=== PATIENT | female | born 1940 | race Caucasian/White ===

== ENCOUNTER → 2017-03-10 | Outpatient (CLI) | payer MEDICARE ==
[~2017-03-10] MED LIST: ACE3 PO; AMLO-104 PO; ASPI-715 PO; CALC-649 PO; CAR350 PO; LISI-362 PO; LOR5/325 PO; METH4TAB57 PO; MULT-1 PO; OXYC-378 PO; OXYC-489 PO; POTA20TA85 PO; POTASSIUM PO; TRIA-20 PO
[2017-03-10 14:54] LABS: INR 2.97
== END ==
LOC: LAB 14:00
PROVIDERS: ATTEND Internal Medicine Cardiovascular Disease
DX: Z51.81 Encounter for therapeutic drug level monitoring (principal); Z95.2 Presence of prosthetic heart valve; I48.0 Paroxysmal atrial fibrillation; Z79.01 Long term (current) use of anticoagulants
CPT/HCPCS: 36415; 85610

== ENCOUNTER → 2017-04-07 | Outpatient (CLI) | payer MEDICARE ==
[2017-04-07 14:58] LABS: INR 2.79
== END ==
LOC: LAB 13:37
PROVIDERS: ATTEND Internal Medicine Cardiovascular Disease
DX: I48.0 Paroxysmal atrial fibrillation (principal); Z95.2 Presence of prosthetic heart valve; Z79.01 Long term (current) use of anticoagulants
CPT/HCPCS: 36415; 85610

== ENCOUNTER 2017-04-16 15:48 | Inpatient (IN) | payer MEDICARE ==
[~2017-04-16] VITALS: Ht 157.5 cm; Wt 83.5 kg
[2017-04-16] MEDS ORDERED: ALBUTEROL/IPRATROPIUM 3 ML NEB NEB ONE (16:10)
[2017-04-16 16:18] LABS: PLATELET COUNT, AUTOMATED 209 K/uL (150-450)
[2017-04-16] MEDS ORDERED: CLOP75TA PO (16:23)
[2017-04-16] MEDS ORDERED: SIMV-49 PO (16:23)
[2017-04-16] MEDS ORDERED: TIO18R INH (16:23)
[2017-04-16] MEDS ORDERED: WARF5TAB23 PO (16:23)
[2017-04-16] MEDS ORDERED: LISI-362 PO (16:23)
[2017-04-16] MEDS ORDERED: OMEP-137 PO (16:23)
--- NOTE | 2017-04-16 16:29 | EKG ---
[place] [facility] [place] NAME: MIGUEL GONZALEZ : [id number] MR: [id number] V: [id number] EXAM DATE: ORDERING PHYSICIAN: ELI GARCIA TECHNOLOGIST: NINO Klein Reason : SOB Blood Pressure : / mmHG Vent. Rate : 078 BPM Atrial Rate : 078 BPM P-R Int : 190 ms QRS Dur : 138 ms QT Int : 418 ms P-R-T Axes : 068 -88 074 degrees QTc Int : 476 ms Ventricular pacemaker Abnormal ECG Confirmed by ONEYDA BETH ([id number]) on 04/17/2017 6:17:29 AM Referred By: RADHA Confirmed By:ONEYDA BETH
--- NOTE | 2017-04-16 16:57 | RADIOLOGY IMAGING REPORT ---
FACILITY: [facility] - [place] PATIENT NAME: Livier Jarrett : 1940 MR: [id number] V: [id number] EXAM DATE: ORDERING PHYSICIAN: ELI GARCIA TECHNOLOGIST: Location: [facility] Patient: Livier Jarrett : 1940 Visit/Account:[id number] Date of Sevice: 04/16/2017 EXAMINATION: Chest radiographs 2 views HISTORY: Shortness of breath. COMPARISON: None. FINDINGS: PA and lateral views of the chest are submitted. Lines/tubes: Left-sided dual-lead pacemaker with intact and well-positioned leads. Spinal cord stimu lator in the dorsal thoracic region partly visualized. Lungs/pleura: No focal consolidation or pleural effusion. Heart: Negative. Mediastinum: Atherosclerotic calcifications of the aorta. Central pulmonary arteries are mildly enla rged. Stent graft in the proximal ascending aorta. Bony structures/body wall: Fusion hardware in the lower cervical spine. IMPRESSION: No radiographic evidence of acute cardiopulmonary disease. Report Dictated By: Danielle Conteh MD at 04/16/2017 4:52 PM Report E-Signed By: Danielle Conteh MD at 04/16/2017 4:54 PM WSN:[id number]
[2017-04-16] MEDS ORDERED: NS(*) 0.9% 500 ML BAG 500 ML IV ONE (17:15)
[2017-04-16] MEDS ORDERED: IOPAMIDOL 76% 75 ML INFUS BTL 75 ML ONE (17:19)
[2017-04-16] MEDS ORDERED: NS 0.9% ONE (17:19)
[2017-04-16 17:26] LABS: INR 2.06
[2017-04-16] MEDS ORDERED: IOPAMIDOL 76% 50 ML INFUS BTL 50 ML ONE (17:41)
--- NOTE | 2017-04-16 17:54 | ER Report ---
History and Physical Time Seen By MD: 13:50 Hx. of Stated Complaint: PATIENT WAS SEEN AT URGENT CARE. DIAGNOSED WITH PNEUMONIA AND SENT OVER HERE HPI/ROS CHIEF COMPLAINT: Hypoxia HISTORY OF PRESENT ILLNESS: 68 HO female comes emergency Department today sent here by an urgent care center for diagnosis of reportedly bilateral pneumonia and hypoxia she was hypoxic on arrival patient states she's been short of breath for the last couple of days history of valve replacement and pacemaker placement patient has no orthopnea no PND patient denies any chest pain at this time patient states that she's had some exertional dyspnea however patient has no additional complaints noted REVIEW OF SYSTEMS: Respiratory: Has dyspnea without cough Cardiovascular: No chest pain, no palpitations. Gastrointestinal: No vomiting, no abdominal pain. Musculoskeletal: No back pain. Remainder of the 14 system rev: Yes Allergies: Coded Allergies: adhesive tape (Verified Allergy, Mild, 10/10/12) duloxetine (Verified Allergy, Mild, 10/10/12) escitalopram (Verified Allergy, Mild, 10/10/12) gabapentin (Verified Allergy, Mild, 10/10/12) pregabalin (Verified Allergy, Mild, 10/10/12) Home Meds Active Scripts Prednisone 10 Mg Tab (PREDNISONE 10 MG TAB) 10 Mg Tablet, 10-40 MG PO QDAY, #21 TAB 4 pills a day for 3 days, then 2 a day for 3 days, then 1 a day for 3 days Prov:ARY CANNON MD 04/20/17 Levofloxacin 750 Mg Tab (LEVOFLOXACIN 750 MG TAB) 750 Mg Tablet, 750 MG PO QDAY@ 1430, #2 Prov:ARY CANNON MD 04/20/17 Reported Medications Warfarin Sodium (WARFARIN SODIUM) 5 Mg Tablet, 5 MG PO QDAY, TAB 1 tab on MON, WED, FRI 1/2 Tab on TUES, THURS, SAT, SUN 04/16/17 Clopidogrel Bisulfate (CLOPIDOGREL) 75 Mg Tablet, 1 TAB PO QDAY, TAB 04/16/17 Tiotropium Glover (SPIRIVA) 18 Mcg/Cap Inh, 18 MCG INH QDAY, INH 04/16/17 Simvastatin (SIMVASTATIN) 20 Mg Tablet, 20 MG PO HS, TAB 04/16/17 Omeprazole (OMEPRAZOLE) 20 Mg Tablet.dr, 20 MG PO QDAY, TAB 04/16/17 Lisinopril (LISINOPRIL) 10 Mg Tablet, 10 MG PO QDAY, TAB 04/16/17 Multivitamins W-Minerals/Lut (Centrum Silver Tablet) 1 Tab Tablet, 1 TAB PO DAILY, 0 Refills 02/02/09 Amlodipine Besylate (Norvasc) 10 Mg Tablet, 10 MG PO DAILY, 0 Refills 02/02/09 Discontinued Reported Medications Hydrocodone Bit/Acetaminophen (HYDROCODON-ACETAMINOPHEN 5-325) 1 Each Tablet, 1 EACH PO Q4-6H 10/10/12 Calcium Carbonate/Vitamin D3 (Calcium + D Tablet) 1 Udtab Tablet, 1 UDTAB PO DAILY, 0 Refills 02/02/09 Aspirin (Aspirin) 81 Mg Tablet.dr, 81 MG PO DAILY, 0 Refills 02/02/09 Triamterene/Hydrochlorothiazid (Triamterene/Hctz 37.5/25 Tb) 1 Each Tablet, 1 EACH PO DAILY, 0 Refills 02/02/09 Carisoprodol (Soma) 350 Mg Tab, 350 MG PO BID, 0 Refills 02/02/09 Reviewed Nurses Notes: Yes Old Medical Records Reviewed: Yes Hx Smoking: Yes (10 A DAY) Constitutional Physical Exam General Appearance: The patient is alert, has no immediate need for airway protection and no current signs of toxicity. [ ] Eyes: Pupils equal and round no injection. Respiratory: Decreased breath sounds right greater than left some mild coarse crackles at the bases otherwise unremarkable Cardiac: regular rate and rhythm [ ] Gastrointestinal: Abdomen is soft and non tender, no masses, bowel sounds normal. Musculoskeletal: Neck: Neck is supple and non tender. Extremities have full range of motion and are non tender. Skin: No rashes or lesions. [ ] DIFFERENTIAL DIAGNOSIS: After history and physical exam differential diagnosis was considered for CHF COPD acute myocardial infarction pulmonary emboli or dissection infectious pneumonia bronchitis Medical Decision Making Data Points Result Diagram: 04/20/17 0505 04/20/17 0505 Laboratory Hematology Test 04/16/17 16:06 04/16/17 16:22 Activated Partial Thromboplast Time 37 seconds (23-35) D-Dimer Quantitative (PE/DVT) < 0.27 ug/ml (0-0.50) B-Type Natriuretic Peptide 278 pg/ml (0-100) Blood Gas Puncture Site Left radial Blood Gas Patient Temperature 97.8 DEGREES Arterial Blood pH 7.33 (7.35-7.45) Arterial Blood Partial Pressure CO2 39 mmHg (32-37) Arterial Blood Partial Pressure O2 67 mmHg (60-80) Arterial Blood HCO3 20 mmol/L (20-26) Arterial Blood Oxygen Saturation 92 % (92-100) Arterial Blood Base Excess -6.0 mmol/L Josh Test Acceptable Oxygen Liters/Minute 8 Chemistry Test 04/16/17 16:06 04/16/17 16:22 Activated Partial Thromboplast Time 37 seconds (23-35) D-Dimer Quantitative (PE/DVT) < 0.27 ug/ml (0-0.50) B-Type Natriuretic Peptide 278 pg/ml (0-100) Blood Gas Puncture Site Left radial Blood Gas Patient Temperature 97.8 DEGREES Arterial Blood pH 7.33 (7.35-7.45) Arterial Blood Partial Pressure CO2 39 mmHg (32-37) Arterial Blood Partial Pressure O2 67 mmHg (60-80) Arterial Blood HCO3 20 mmol/L (20-26) Arterial Blood Oxygen Saturation 92 % (92-100) Arterial Blood Base Excess -6.0 mmol/L Josh Test Acceptable Oxygen Liters/Minute 8 Coagulation Test 04/16/17 16:06 Activated Partial Thromboplast Time 37 seconds D-Dimer Quantitative (PE/DVT) < 0.27 ug/ml ED Course/Re-evaluation ED Course ED clinical course medical decision making some major female x-ray does not show bilateral pneumonias in fact shows no cardiopulmonary acute pathology of any kind patient is elevated to 60 most likely heartstring could be progressive from the valve replacement Coumadin is subtherapeutic we'll get a CT scan this is pending we'll be signing off to Sourav Contreras for follow-up patient on supplemental oxygen 7 L now passed 90% resting comfortably physical exam otherwise unremarkable aside from an abnormal respiratory exam patient will not be day recent confirmatory CT scan has been performed overshoot anticoagulated she is subtherapeutic on her INR 2.05 patient be admitted to hospitalist service for hypoxia Decision to Disposition Date: Apr 23, 2017 Decision to Disposition Time: 10:09 Depart Departure Latest Vital Signs Impression: Primary Impression: Hypoxia Condition: Improved Disposition: Admitted from ER Referrals: NEVAEH MITTAL (PCP) New Scripts Prednisone 10 Mg Tab (PREDNISONE 10 MG TAB) 10 Mg Tablet 10-40 MG PO QDAY, #21 TAB 4 pills a day for 3 days, then 2 a day for 3 days, then 1 a day for 3 days Prov: ARY CANNON MD 04/20/17 Levofloxacin 750 Mg Tab (LEVOFLOXACIN 750 MG TAB) 750 Mg Tablet 750 MG PO QDAY@1430, #2 Prov: ARY CANNON MD 04/20/17 ELI GARCIA MD Apr 16, 2017 17:54
--- NOTE | 2017-04-16 18:11 | RADIOLOGY IMAGING REPORT ---
[place] [facility] [place] NAME: Livier Jarrett : 1940 MR: [id number] V: [id number] EXAM DATE: ORDERING PHYSICIAN: ELI GARCIA TECHNOLOGIST: Location: [facility] [place] Patient: Livier Jarrett : 1940 Visit/Account:[id number] Date of Sevice: 04/16/2017 CT angiogram chest with contrast Indication: Cough and hypoxia. Comparison: None available. Technique: Axial CT images are obtained through the chest after administration of 75 mL Isovue 370 IV contrast. Reformatted coronal and sagittal images were reviewed as well as coronal MIP images. One of the following dose optimization techniques was utilized in the performance of this exam: auto mated exposure control; adjustment of the mA and/or kV according to the patient's size; or use of an iterative reconstruction technique. Specific details can be referenced in the facility's radiology C T exam operational policy. FINDINGS: No evidence of filling defect within the pulmonary vasculature to suggest pulmonary embolus. The heart is normal size without pericardial effusion. Cardiac pacing wires are in place. The proxima l aorta does show a stent in place without sequelae. There is no indication of aneurysm or dissection to the aorta. The mediastinum and hilar regions show a few small lymph nodes without any enlarged ly mph nodes or abnormal density. Lungs show no focal consolidation, pleural effusion or pneumothorax. The anterior left lower lobe jacome s show a pleural-based 4 x 4 mm nodule on image #89. The right upper lobe does show a 3 x 3 mm nodule on image #27. No other discrete nodules. No focal interstitial opacities. Airways are clear. The bony structures show no acute fractures or aggressive bony lesions. There is a neural stimulating wire in place the spinal canal region at the T9 level. Chest wall shows no enlarged axillary lymph n odes or masses. Limited views of the upper abdomen are unremarkable. IMPRESSION: 1. No evidence of pulmonary embolus. 2. No acute cardiothoracic abnormality 3. Bilateral subcentimeter nodule, largest 4 mm. These are too small characterize and could be postin flammatory. Suggest follow-up films for Fleischner guidelines described below. FLEISCHNER SOCIETY FOLLOW-UP GUIDELINES FOR NEWLY DETECTED INCIDENTAL NODULES IN PERSONS 35 YEARS OF AGE OR OLDER. *THESE RECOMMENDATIONS DO NOT APPLY TO LUNG CANCER SCREENING, PATIENTS WITH IMMUNOSUPPRESSION , OR PA TIENTS WITH KNOWN PRIMARY MALIGNANCY. MULTIPLE SOLID NODULES If largest nodule size is less than 6 mm: Low risk patient - no follow up needed High risk patient - Optional CT at 12 months. If largest nodule size is 6-8 mm: Low risk patient - follow up CT at 3-6 months, then consider CT at 18-24 months if no change. High risk patient - follow up CT at 3-6 months, then CT at 18-24 months if no change. If largest nodule size is greater than 8 mm: Low risk patient - follow up CT at 3-6 months, then consider CT at 18-24 months High risk patient - follow up CT at 3-6 months, then at 18-24 months LOW RISK PATIENT: Minimal or absent history of tobacco use and of other known risk factors. HIGH RISK PATIENT: Tobacco use, family history of lung cancer, upper pulmonary lobe location of nodul e, presence of emphysema, pulmonary fibrosis, older age. Jaime H, Yasmin DP, Livia VELASQUEZ, et al. Guidelines for Management of Incidental Pulmonary Nodules Dete cted on CT Images: From the Fleischner Society 2017. Radiology. Report Dictated By: Leonard Garza at 04/16/2017 5:58 PM Report E-Signed By: Leonard Garza at 04/16/2017 6:08 PM WSN:[id number]
--- NOTE | 2017-04-16 18:13 | EKG ---
FACILITY: [facility] - [place] PATIENT NAME: MIGUEL GONZALEZ : [id number] MR: [id number] V: [id number] EXAM DATE: ORDERING PHYSICIAN: ELI GARCIA TECHNOLOGIST: NINO Klein Reason : SOB Blood Pressure : / mmHG Vent. Rate : 075 BPM Atrial Rate : 075 BPM P-R Int : 186 ms QRS Dur : 136 ms QT Int : 428 ms P-R-T Axes : 070 -86 068 degrees QTc Int : 477 ms Ventricular pacemaker Abnormal ECG When compared with ECG of 16-APR-2017 16:01, No significant change was found Confirmed by ONEYDA BETH ([id number]) on 04/17/2017 6:18:02 AM Referred By: RADHA Confirmed By:ONEYDA BETH
[2017-04-16 18:27] VITALS: BP 136/69
[2017-04-16] MEDS ORDERED: ACETAMINOPHEN 325 MG TAB PO PRN (19:40)
[2017-04-16] MEDS ORDERED: FLUSH 10 ML SYR IVP PRN (19:40)
[2017-04-16] MEDS ORDERED: LEVALBUTEROL 0.63 MG/3 ML NEB NEB PRN (19:45)
--- NOTE | 2017-04-16 20:04 | History & Physical ---
History of Present Illness Chief Complaint Short of breath History of Present Illness 76yo female with PMHx significant for aortic valve replacement, pacemaker placement, HTN, polio as a child, multiple orthopedic surgeries. She reports onset of "feeling lousy" approximately 6-7 days ago. This was mainly cough ( minimally productive), dyspnea, mild myalgias, generalized malaise. She denied any obvious fevers or chills. No N/V/diarrhea, but did have decreased appetite. No urinary symptoms. No rashes. No CP/palpitations. She was evaluated in the urgent care and ER. She was found to be significantly hypoxic and requiring 6- 8L oxygen. CXR and CT pulmonary angiogram did not reveal a specific infiltrate or obvious pulmonary edema and negative for pulmonary embolus. She was recommended for admission. 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 Status: Chronic (7) History of lumbosacral spine surgery Status: Resolved (8) S/P cervical spinal fusion Status: Resolved Home Meds Reported Medications Warfarin Sodium (WARFARIN SODIUM) 5 Mg Tablet, 5 MG PO QDAY, TAB 1 tab on MON, WED, FRI 1/2 Tab on TU, TH, SAT, SUN 04/16/17 Clopidogrel Bisulfate (CLOPIDOGREL) 75 Mg Tablet, 1 TAB PO QDAY, TAB 04/16/17 Tiotropium Alexander (SPIRIVA) 18 Mcg/Cap Inh, 18 MCG INH QDAY, INH 04/16/17 Simvastatin (SIMVASTATIN) 20 Mg Tablet, 20 MG PO HS, TAB 04/16/17 Omeprazole (OMEPRAZOLE) 20 Mg Tablet.dr, 20 MG PO QDAY, TAB 04/16/17 Lisinopril (LISINOPRIL) 10 Mg Tablet, 10 MG PO QDAY, TAB 04/16/17 Multivitamins W-Minerals/Lut (Centrum Silver Tablet) 1 Tab Tablet, 1 TAB PO DAILY, 0 Refills 02/02/09 Amlodipine Besylate (Norvasc) 10 Mg Tablet, 10 MG PO DAILY, 0 Refills 02/02/09 Discontinued Reported Medications Hydrocodone Bit/Acetaminophen (HYDROCODON-ACETAMINOPHEN 5-325) 1 Each Tablet, 1 EACH PO Q4-6H 10/10/12 Calcium Carbonate/Vitamin D3 (Calcium + D Tablet) 1 Udtab Tablet, 1 UDTAB PO DAILY, 0 Refills 02/02/09 Aspirin (Aspirin) 81 Mg Tablet.dr, 81 MG PO DAILY, 0 Refills 02/02/09 Triamterene/Hydrochlorothiazid (Triamterene/Hctz 37.5/25 Tb) 1 Each Tablet, 1 EACH PO DAILY, 0 Refills 02/02/09 Carisoprodol (Soma) 350 Mg Tab, 350 MG PO BID, 0 Refills 02/02/09 Allergies: Coded Allergies: adhesive tape (Verified Allergy, Mild, 10/10/12) duloxetine (Verified Allergy, Mild, 10/10/12) escitalopram (Verified Allergy, Mild, 10/10/12) gabapentin (Verified Allergy, Mild, 10/10/12) pregabalin (Verified Allergy, Mild, 10/10/12) Patient History: CHF (congestive heart failure) MOTHER Coronary artery disease FATHER Other Social/Family Hx She is . Hx Smoking: Yes (10 A DAY) Smoking Status: Current: Every Day Smoker (quit a few days ago) Hx Alcohol Use: Yes (very rarely) Review of Systems Constitutional: No Fever, No Chills, No Night Sweats Neurological: Weakness, No Syncope, No Confusion Eyes: No Vision Change, No Loss of Vision ENT: No Hearing Loss, No Sore Throat Cardiovascular: No Chest Pain, No Palpitations, No Orthostatic Hypotension Respiratory: Shortness of Breath, Cough, Wheezing Gastrointestinal: No Nausea, No Vomiting, No Diarrhea, No Hematemesis, No Hematochezia, No Melena, No Abdominal Pain Genitourinary: No Dysuria, No Hematuria, No Urinary Incontinence Musculoskeletal: Pain (chronic back/lower extremity) Exam Vital Signs Vital Signs Date Time Temp Pulse Resp B/P (MAP) Pulse Ox O2 Delivery O2 Flow Rate FiO2 04/16/17 18:27 97.7 83 20 136/69 (91) 92 High-Flow Nasal Cannula 8.0 General Appearance: Alert, Awake Neuro: Other (weakness left lower extremity) Eyes: PERRLA ENT: Oropharynx Clear Neck: No Masses Cardiovascular: Regular Rate and Rhythm (with systolic murmur) Respiratory: Other (decreased breath sounds bilaterally with expiratory wheezes ) Chest: Other (some tenderness over pacemaker site left upper chest (chronic)/ no redness/swelling) GI: Abd Soft and Non-Tender : No CVA Tenderness Extremities: Warm, Perfused, Edema (trace lower extremity) Integumentary: Other (no rashes noted) Psych: Alert & Oriented X3 Medical Decision Making Data Points Result Diagram: 04/16/17 1606 04/16/17 1606 Item Value Date Time B-Type Natriuretic Peptide 278 pg/ml H 04/16/17 1606 Albumin 4.4 g/dl 04/16/17 1606 Total Protein 7.7 gm/dl 04/16/17 1606 Troponin I 0.017 ng/ml 04/16/17 1606 Alkaline Phosphatase 85 U/L 04/16/17 1606 Alanine Aminotransferase (ALT/SGPT) 32 U/L 04/16/17 1606 Aspartate Amino Transf (AST/SGOT) 29 U/L 04/16/17 1606 Total Bilirubin 0.4 mg/dl 04/16/17 1606 Calcium Level 9.2 mg/dl 04/16/17 1606 Prothrombin Time 23.7 seconds H 04/16/17 1606 Prothromb Time International Ratio 2.06 04/16/17 1606 Activated Partial Thromboplast Time 37 seconds H 04/16/17 1606 D-Dimer Quantitative (PE/DVT) < 0.27 ug/ml 04/16/17 1606 Oxygen Liters/Minute 8 04/16/17 1622 Josh Test Acceptable 04/16/17 1622 Arterial Blood Base Excess -6.0 mmol/L 04/16/17 1622 Arterial Blood Oxygen Saturation 92 % 04/16/17 1622 Arterial Blood HCO3 20 mmol/L 04/16/17 1622 Arterial Blood Partial Pressure O2 67 mmHg 04/16/17 1622 Arterial Blood Partial Pressure CO2 39 mmHg H 04/16/17 1622 Arterial Blood pH 7.33 L 04/16/17 1622 Blood Gas Patient Temperature 97.8 DEGREES 04/16/17 1622 Blood Gas Puncture Site Left radial 04/16/17 1622 EKG / Imaging Imaging PATIENT NAME: Livier Jarrett : 1940 MR: [id number] V: [id number] EXAM DATE: ORDERING PHYSICIAN: ELI GARCIA TECHNOLOGIST: Location: [facility] [place] Patient: Livier Jarrett : 1940 Visit/Account:[id number] Date of Sevice: 04/16/2017 EXAMINATION: Chest radiographs 2 views HISTORY: Shortness of breath. COMPARISON: None. FINDINGS: PA and lateral views of the chest are submitted. Lines/tubes: Left-sided dual-lead pacemaker with intact and well-positioned leads. Spinal cord stimulator in the dorsal thoracic region partly visualized. Lungs/pleura: No focal consolidation or pleural effusion. Heart: Negative. Mediastinum: Atherosclerotic calcifications of the aorta. Central pulmonary arteries are mildly enlarged. Stent graft in the proximal ascending aorta. Bony structures/body wall: Fusion hardware in the lower cervical spine. IMPRESSION: No radiographic evidence of acute cardiopulmonary disease. Report Dictated By: Danielle Conteh MD at 04/16/2017 4:52 PM Report E-Signed By: Danielle Conteh MD at 04/16/2017 4:54 PM WSN:[id number] PATIENT NAME: Livier Jarrett : 1940 MR: [id number] V: [id number] EXAM DATE: ORDERING PHYSICIAN: ELI GARCIA TECHNOLOGIST: Location: [facility] [place] Patient: Livier Jarrett : 1940 Visit/Account:[id number] Date of Sevice: 04/16/2017 CT angiogram chest with contrast Indication: Cough and hypoxia. Comparison: None available. Technique: Axial CT images are obtained through the chest after administration of 75 mL Isovue 370 IV contrast. Reformatted coronal and sagittal images were reviewed as well as coronal MIP images. One of the following dose optimization techniques was utilized in the performance of this exam: automated exposure control; adjustment of the mA and/ or kV according to the patient's size; or use of an iterative reconstruction technique. Specific details can be referenced in the facility's radiology CT exam operational policy. FINDINGS: No evidence of filling defect within the pulmonary vasculature to suggest pulmonary embolus. The heart is normal size without pericardial effusion. Cardiac pacing wires are in place. The proximal aorta does show a stent in place without sequelae. There is no indication of aneurysm or dissection to the aorta. The mediastinum and hilar regions show a few small lymph nodes without any enlarged lymph nodes or abnormal density. Lungs show no focal consolidation, pleural effusion or pneumothorax. The anterior left lower lobe does show a pleural-based 4 x 4 mm nodule on image # 89. The right upper lobe does show a 3 x 3 mm nodule on image #27. No other discrete nodules. No focal interstitial opacities. Airways are clear. The bony structures show no acute fractures or aggressive bony lesions. There is a neural stimulating wire in place the spinal canal region at the T9 level. Chest wall shows no enlarged axillary lymph nodes or masses. Limited views of the upper abdomen are unremarkable. IMPRESSION: 1. No evidence of pulmonary embolus. 2. No acute cardiothoracic abnormality 3. Bilateral subcentimeter nodule, largest 4 mm. These are too small characterize and could be postinflammatory. Suggest follow-up films for Fleischner guidelines described below. FLEISCHNER SOCIETY FOLLOW-UP GUIDELINES FOR NEWLY DETECTED INCIDENTAL NODULES IN PERSONS 35 YEARS OF AGE OR OLDER. *THESE RECOMMENDATIONS DO NOT APPLY TO LUNG CANCER SCREENING, PATIENTS WITH IMMUNOSUPPRESSION , OR PATIENTS WITH KNOWN PRIMARY MALIGNANCY. MULTIPLE SOLID NODULES If largest nodule size is less than 6 mm: Low risk patient - no follow up needed High risk patient - Optional CT at 12 months. If largest nodule size is 6-8 mm: Low risk patient - follow up CT at 3-6 months, then consider CT at 18-24 months if no change. High risk patient - follow up CT at 3-6 months, then CT at 18-24 months if no change. If largest nodule size is greater than 8 mm: Low risk patient - follow up CT at 3-6 months, then consider CT at 18-24 months High risk patient - follow up CT at 3-6 months, then at 18-24 months LOW RISK PATIENT: Minimal or absent history of tobacco use and of other known risk factors. HIGH RISK PATIENT: Tobacco use, family history of lung cancer, upper pulmonary lobe location of nodule, presence of emphysema, pulmonary fibrosis, older age. Jaime H, Yasmin DP, Livia VELASQUEZ, et al. Guidelines for Management of Incidental Pulmonary Nodules Detected on CT Images: From the Fleischner Society 2017. Radiology. Report Dictated By: Leonard Garza at 04/16/2017 5:58 PM Report E-Signed By: Leonard Garza at 04/16/2017 6:08 PM WSN:[id number] Assessment and Plan Problems: (1) Hypoxia Status: Acute Assessment & Plan: Based on history and exam it sounds as if she has significant bronchospasm possibly related to an acute viral infection. Will try to get her reactive airways under control. Will give supplemental oxygen and respiratory treatments as needed. Will also give a short burst of steroids. It is possible she has some mild pulmonary edema as well, especially given her history of valvular heart disease (s/p aortic valve replacement). Will check echocardiogram to assess LV function. Watch closely on telemetry. (2) HTN (hypertension) Status: Chronic Assessment & Plan: Watch BPs and resume her amlodipine and lisinopril as needed. (3) History of aortic valve replacement with porcine valve Status: Chronic Assessment & Plan: She has been on warfarin therapy since her surgery. Watch protime/INR. (4) History of permanent cardiac pacemaker placement Status: Chronic Assessment & Plan: Her pacemaker appears to be functioning normally. Watch on telemetry. Venous Thromboembolism Antithrombotics Is Pt On Any Antithrombotics?: Yes Exam Sepsis Risk: No Definite Risk ONEYDA BETH MD Apr 16, 2017 20:04
[2017-04-16] MEDS: methylPREDNIS SUCC 125 MG/2ML IVP SCH (21:00)
[2017-04-16] MEDS: SIMVASTATIN 20 MG TAB PO SCH (21:00)
[2017-04-16] MEDS: WARFARIN SOD 5 MG TAB PO SCH (21:17)
[2017-04-16 22:10] VITALS: BP 135/89
[2017-04-16 23:06] VITALS: BP 135/89
[2017-04-17 03:05] VITALS: BP 144/62
[2017-04-17] MEDS: methylPREDNIS SUCC 125 MG/2ML IVP SCH ×3 (05:24→20:31)
[2017-04-17] MEDS: LEVALBUTEROL 0.63 MG/3 ML NEB NEB SCH ×4 (06:00→16:59)
[2017-04-17 06:17] LABS: PLATELET COUNT, AUTOMATED 191 K/uL (150-450)
[2017-04-17 06:26] LABS: INR 2.15
[2017-04-17 07:42] VITALS: BP 151/77
[2017-04-17] MEDS: PANTOPRAZOLE SOD 40 MG TABEC PO SCH (08:32)
[2017-04-17] MEDS: CLOPIDOGREL BISULFATE 75MG TAB PO SCH (08:32)
[2017-04-17] MEDS: LISINOPRIL 10 MG TAB PO SCH (08:32)
[2017-04-17] MEDS: amLODIPine BESYL(*) 5 MG TAB PO SCH (08:32)
[2017-04-17 09:05] VITALS: Ht 157.5 cm; Wt 83.5 kg
[2017-04-17] MEDS: TIOTROPIUM BROM INH 18 MCG/CAP INH SCH (09:05)
[2017-04-17 10:56] VITALS: BP 161/74
--- NOTE | 2017-04-17 13:07 | Hospitalist Progress Note ---
Subjective Progress Notes Subjective She reports continued increased wob that is improved by getting nebs. The patient is still requiring 10 liters of O2. Physical Exam Vital Signs Date Time Temp Pulse Resp B/P (MAP) Pulse Ox O2 Delivery O2 Flow Rate FiO2 04/17/17 11:20 70 04/17/17 10:56 98.0 20 161/74 (103) 92 High-Flow Nasal Cannula 10.0 Intake and Output 04/18/17 07:00 Intake Total 440 ml Balance 440 ml Intake Oral 440 ml # Voids 1 General Appearance: Alert, Awake, Other (Mild increased work of breathing) Respiratory: Other (Poor air movement to the bases. Bilateral exp wheezing) Extremities: No Edema Result Diagram: 04/17/1752704/17/17527 Assessment and Plan Problems: (1) COPD exacerbation Status: Acute Assessment & Plan: She presented with "feeling lousy" for a couple of days and was found to be hypoxic. No infiltrate or PE on CT scan. She has >50 pack year history of smoking. Based on history and exam it sounds as if she has significant bronchospasm possibly related to an acute viral infection (i.e. reportedly RSV positive at Urgent Care). It is possible she has some mild pulmonary edema as well, especially given her history of valvular heart disease (s/p aortic valve replacement). Will check echocardiogram to assess LV function. Watch closely on telemetry. Getting IV steroids and nebulizer treatment. Still with a high O2 requirement. Afebrile. (2) History of aortic valve replacement with porcine valve Status: Chronic Assessment & Plan: She has been on warfarin therapy since her surgery. Watch protime/INR. (3) History of permanent cardiac pacemaker placement Status: Chronic Assessment & Plan: Her pacemaker appears to be functioning normally. Watch on telemetry. (4) HTN (hypertension) Status: Chronic Assessment & Plan: Watch BPs and resume her amlodipine and lisinopril as needed. (5) Pulmonary nodules Status: Chronic Assessment & Plan: Found incidently on CT. Largest is 4mm. Based on Fleischner guidelines, she needs a follow up CT in 12 months Copies to: TABITHA SHINE MD Exam Sepsis Risk: No Definite Risk ARY CANNON MD Apr 17, 2017 13:07
[2017-04-17 15:00] VITALS: BP 148/88
[2017-04-17 20:21] VITALS: BP 154/71
[2017-04-17] MEDS: SIMVASTATIN 20 MG TAB PO SCH (20:24)
[2017-04-17] MEDS ORDERED: WARFARIN SOD 2.5 MG TAB PO SCH (21:00)
[2017-04-17 23:02] VITALS: BP 142/96
[2017-04-18 03:06] VITALS: BP 153/86
[2017-04-18] MEDS: methylPREDNIS SUCC 125 MG/2ML IVP SCH (05:20)
[2017-04-18] MEDS: LEVALBUTEROL 0.63 MG/3 ML NEB NEB SCH ×4 (06:00→17:31)
[2017-04-18 06:11] LABS: INR 2.58
[2017-04-18 07:38] LABS: PLATELET COUNT, AUTOMATED 214 K/uL (150-450)
[2017-04-18 07:46] VITALS: BP 143/101
[2017-04-18] MEDS: CLOPIDOGREL BISULFATE 75MG TAB PO SCH (08:20)
[2017-04-18] MEDS: PANTOPRAZOLE SOD 40 MG TABEC PO SCH (08:20)
[2017-04-18] MEDS ORDERED: cefTRIAXone 1 GM VIAL IVP SCH (09:00)
[2017-04-18] MEDS: TIOTROPIUM BROM INH 18 MCG/CAP INH SCH (09:12)
[2017-04-18] MEDS: LISINOPRIL 10 MG TAB PO SCH (09:19)
[2017-04-18] MEDS: amLODIPine BESYL(*) 5 MG TAB PO SCH (09:20)
[2017-04-18] MEDS ORDERED: LIDOCAINE/SOD BICARB 8.4% SYR ID ONE (10:10)
--- NOTE | 2017-04-18 11:53 | Hospitalist Progress Note ---
Subjective Progress Notes Subjective She was admitted for COPD. She had no acute events overnight. Patient Complains of: Cardiovascular: No: Chest Pain Respiratory: Shortness of Breath Physical Exam Vital Signs Date Time Temp Pulse Resp B/P (MAP) Pulse Ox O2 Delivery O2 Flow Rate FiO2 04/18/17 09:17 84 20 04/18/17 09:17 99 High-Flow Nasal Cannula 8.0 04/18/17 07:46 98.0 143/101 (115) Intake and Output 04/19/17 07:00 Intake Total 710 ml Balance 710 ml Intake Oral 710 ml # Voids 2 General Appearance: Alert Cardiovascular: Normal Rhythm & Peripheral Pulses, Regular Rate and Rhythm Respiratory: No Respiratory Distress, Other (Diminished with wheezing bilaterally) : Normal Integumentary: Skin Intact without Lesion / Mass Psych: Alert & Oriented X3 Result Diagram: 04/18/1751204/18/17512 Assessment and Plan Problems: (1) COPD exacerbation Status: Acute Assessment & Plan: She presented with increased shortness of breath. CT scan and x-ray were negative for infiltrate. She is on empiric treatment with steroids, nebulizers, and ceftriaxone. (2) History of aortic valve replacement with porcine valve Status: Chronic Assessment & Plan: She is on chronic treatment with warfarin. INR therapeutic. (3) HTN (hypertension) Status: Chronic Assessment & Plan: She is on chronic treatment with amlodipine and lisinopril. (4) Pulmonary nodules Status: Chronic Assessment & Plan: Found incidently on CT. Largest is 4mm. Based on Fleischner guidelines, she needs a follow up CT in 12 months Exam Sepsis Risk: No Definite Risk Problem Qualifiers (1) HTN (hypertension): Hypertension type: essential hypertension Qualified Codes: I10 - Essential ( primary) hypertension KATERIN BOO DO Apr 18, 2017 11:53
[2017-04-18] MEDS ORDERED: predniSONE 10 MG TAB PO SCH (14:30)
[2017-04-18] MEDS: LEVOFLOXACIN 750 MG TAB PO SCH (14:40)
[2017-04-18 14:51] VITALS: BP 125/80
[2017-04-18 18:45] VITALS: BP 134/82
[2017-04-18] MEDS: SIMVASTATIN 20 MG TAB PO SCH (20:44)
[2017-04-18] MEDS: predniSONE 20 MG TAB PO SCH (20:44)
[2017-04-18] MEDS: WARFARIN SOD 5 MG TAB PO SCH (20:47)
[2017-04-18 22:38] VITALS: BP 127/70
[2017-04-19 04:25] VITALS: BP 100/68
[2017-04-19] MEDS: predniSONE 20 MG TAB PO SCH ×2 (04:25→16:56)
[2017-04-19 05:53] LABS: INR 3.1
[2017-04-19] MEDS: LEVALBUTEROL 0.63 MG/3 ML NEB NEB SCH ×4 (06:00→18:35)
[2017-04-19 07:53] VITALS: BP 146/65
[2017-04-19] MEDS: CLOPIDOGREL BISULFATE 75MG TAB PO SCH (08:52)
[2017-04-19] MEDS: PANTOPRAZOLE SOD 40 MG TABEC PO SCH (08:52)
[2017-04-19] MEDS: amLODIPine BESYL(*) 5 MG TAB PO SCH (08:53)
[2017-04-19] MEDS: LISINOPRIL 10 MG TAB PO SCH (08:53)
[2017-04-19] MEDS: TIOTROPIUM BROM INH 18 MCG/CAP INH SCH (09:14)
--- NOTE | 2017-04-19 09:53 | Hospitalist Progress Note ---
Subjective Progress Notes Subjective The patient is better but still weak. Physical Exam Vital Signs Date Time Temp Pulse Resp B/P (MAP) Pulse Ox O2 Delivery O2 Flow Rate FiO2 04/19/17 09:24 99 High-Flow Nasal Cannula 5.0 04/19/17 09:24 74 04/19/17 09:15 20 04/19/17 07:53 98.0 146/65 (92) Intake and Output 04/20/17 07:00 Intake Total 300 ml Balance 300 ml Intake Oral 300 ml General Appearance: Alert, Awake, No Acute Distress, Afebrile Neuro: No Gross deficits Eyes: PERRLA ENT: Moist Mucous Membranes Cardiovascular: Regular Rate and Rhythm Respiratory: Other (Markedly decreased BS posteriorly bilaterally with rare wheeze. Diminished BS anteriorly but clear.) GI: Soft and Non-Tender Extremities: Warm, Perfused Integumentary: Generalized Fragile Skin Psych: Appropriate Mood & Affect Result Diagram: 04/18/1751204/18/17512 Assessment and Plan Problems: (1) COPD exacerbation Status: Acute Assessment & Plan: She presented with increased shortness of breath. CT scan and x-ray were negative for infiltrate. She is on empiric treatment with steroids, nebulizers, and ceftriaxone. (2) History of aortic valve replacement with porcine valve Status: Chronic Assessment & Plan: She is on chronic treatment with warfarin. See below. (3) Supratherapeutic INR Status: Acute Assessment & Plan: The patient's INR has jumped significantly likely due to Levaquin therapy. INR is over 3 today and will likely continue to increase. Will hold warfarin today. (4) HTN (hypertension) Status: Chronic Assessment & Plan: She is on chronic treatment with amlodipine and lisinopril. (5) Pulmonary nodules Status: Chronic Assessment & Plan: Found incidently on CT. Largest is 4mm. Based on Fleischner guidelines, she needs a follow up CT in 12 months (6) UTI (urinary tract infection) Status: Acute Assessment & Plan: UA on admission showed 105 WBCs. No culture was done. She is on Levaquin. Will need a follow up UA after treatment to make sure her pyuria has resolved. Time Spent on Plan of Care: < 30 min Exam Sepsis Risk: No Definite Risk Problem Qualifiers (1) HTN (hypertension): Hypertension type: essential hypertension Qualified Codes: I10 - Essential ( primary) hypertension SHIRLEY BETH MD Apr 19, 2017 09:53
[2017-04-19] MEDS: LEVOFLOXACIN 750 MG TAB PO SCH (14:31)
[2017-04-19 14:32] VITALS: BP 144/66
[2017-04-19 19:12] VITALS: BP 159/74
[2017-04-19] MEDS: SIMVASTATIN 20 MG TAB PO SCH (20:49)
[2017-04-20] MEDS: predniSONE 20 MG TAB PO SCH (05:25)
[2017-04-20 05:26] VITALS: BP 182/97
[2017-04-20 05:41] LABS: PLATELET COUNT, AUTOMATED 228 K/uL (150-450)
[2017-04-20 05:44] LABS: INR 3.67
[2017-04-20] MEDS: LEVALBUTEROL 0.63 MG/3 ML NEB NEB SCH ×3 (06:00→14:18)
[2017-04-20 08:10] VITALS: BP 156/82
[2017-04-20] MEDS: LISINOPRIL 10 MG TAB PO SCH (08:14)
[2017-04-20] MEDS: CLOPIDOGREL BISULFATE 75MG TAB PO SCH (08:14)
[2017-04-20] MEDS: PANTOPRAZOLE SOD 40 MG TABEC PO SCH (08:14)
[2017-04-20] MEDS: amLODIPine BESYL(*) 5 MG TAB PO SCH (08:14)
[2017-04-20] MEDS: TIOTROPIUM BROM INH 18 MCG/CAP INH SCH (09:25)
[2017-04-20] MEDS ORDERED: PRED-1 PO (13:07)
[2017-04-20] MEDS ORDERED: LEVO750T27 PO (13:07)
--- NOTE | 2017-04-20 13:30 | Hospitalist Depart ---
Discharge Summary Reason for Hosp/Final Diag: (1) COPD exacerbation Status: Acute Hospital Course & Plan: She presented with increased shortness of breath. CT scan and x-ray were negative for infiltrate. She was on empiric treatment with steroids, nebulizers, and Levofloxacin. She was switched to prednisone yesterday and has done well. Her wheezes have resolved, the high O2 requirement has decreased to 3 liters and her work of breathing is much improved. She will go home on a tapering dose of Prednisone and one more day of Levofloxacin that will make a 5 day course of antibiotics based on renal dosing. (2) History of aortic valve replacement with porcine valve Status: Chronic Hospital Course & Plan: She is on chronic treatment with warfarin. See below. (3) Supratherapeutic INR Status: Acute Hospital Course & Plan: The patient's INR has jumped significantly likely due to Levaquin therapy. INR is over 3 today and will likely continue to increase. Will continue to hold warfarin today. INR tomorrow as an outpatient and the patient's PCP can determine when to restart the Warfarin. (4) HTN (hypertension) Status: Chronic Hospital Course & Plan: She is on chronic treatment with amlodipine and lisinopril. (5) Pulmonary nodules Status: Chronic Hospital Course & Plan: Found incidently on CT. Largest is 4mm. Based on Fleischner guidelines, she needs a follow up CT in 12 months (6) UTI (urinary tract infection) Status: Acute Hospital Course & Plan: UA on admission showed 105 WBCs. No culture was done. She is on Levaquin. Will need a follow up UA after treatment to make sure her pyuria has resolved. (7) CKD (chronic kidney disease) stage 3, GFR 30-59 ml/min Status: Chronic Hospital Course & Plan: Baseline Cr is 1-1.5. She is 1 today. Departure Weight (Pounds): 184 Result Diagram: 04/20/17 0505 04/20/17 0505 Item Value Date Time Troponin I 0.017 ng/ml 04/16/17 1606 B-Type Natriuretic Peptide 278 pg/ml H 04/16/17 1606 Troponin I < 0.012 ng/ml 04/17/17 0528 Total Bilirubin 0.4 mg/dl 04/16/17 1606 Aspartate Amino Transf (AST/SGOT) 29 U/L 04/16/17 1606 Alanine Aminotransferase (ALT/SGPT) 32 U/L 04/16/17 1606 Alkaline Phosphatase 85 U/L 04/16/17 1606 Blood Urea Nitrogen 31 mg/dl H 04/16/17 1606 Creatinine 1.50 mg/dl H 04/16/17 1606 Sodium Level 140 mmol/L 04/16/17 1606 Potassium Level 4.5 mmol/L 04/16/17 1606 Chloride Level 103 mmol/L 04/16/17 1606 Carbon Dioxide Level 23 mmol/L 04/16/17 1606 Random Glucose 126 mg/dl H 04/16/17 1606 Creatinine 1.30 mg/dl H 04/17/17 0528 Creatinine 1.30 mg/dl H 04/18/17 0513 Blood Urea Nitrogen 30 mg/dl H 04/17/17 0528 Blood Urea Nitrogen 32 mg/dl H 04/18/17 0513 Blood Urea Nitrogen 32 mg/dl H 04/20/17 0505 Creatinine 1.00 mg/dl 04/20/17 0505 Potassium Level 5.1 mmol/L H 04/17/17 0528 Potassium Level 5.1 mmol/L H 04/18/17 0513 Potassium Level 5.0 mmol/L 04/20/17 0505 White Blood Count 12.4 k/uL H 04/16/17 1606 White Blood Count 8.3 k/uL 04/17/17 0528 White Blood Count 15.2 k/uL H 04/18/17 0513 White Blood Count 13.2 k/uL H 04/20/17 0505 Hemoglobin 14.2 g/dL 04/16/17 1606 Hemoglobin 13.1 g/dL 04/17/17 0528 Hemoglobin 13.0 g/dL 04/18/17 0513 Hemoglobin 13.2 g/dL 04/20/17 0505 Platelet Count 209 K/uL 04/16/17 1606 Platelet Count 191 K/uL 04/17/17 0528 Platelet Count 214 K/uL 04/18/17 0513 Platelet Count 228 K/uL 04/20/17 0505 Neutrophils (%) (Auto) 80.8 % H 04/16/17 1606 Neutrophils (%) (Auto) 88.9 % H 04/17/17 0528 Neutrophils (%) (Auto) 88.2 % H 04/18/17 0513 Neutrophils (%) (Auto) 83.7 % H 04/20/17 0505 Arterial Blood pH 7.33 L 04/16/17 1622 Arterial Blood Partial Pressure CO2 39 mmHg H 04/16/17 1622 Arterial Blood Partial Pressure O2 67 mmHg 04/16/17 1622 Arterial Blood HCO3 20 mmol/L 04/16/17 1622 Arterial Blood Oxygen Saturation 92 % 04/16/17 1622 Prothromb Time International Ratio 3.67 04/20/17 0505 Prothromb Time International Ratio 3.10 04/19/17 0525 Prothromb Time International Ratio 2.58 04/18/17 0513 Prothromb Time International Ratio 2.15 04/17/17 0528 Prothromb Time International Ratio 2.06 04/16/17 1606 Influenza Virus Type A (PCR) Negative 04/17/17 0526 Influenza Virus Type B (PCR) Negative 04/17/17 0526 Urine RBC 23 /HPF 04/17/17 0600 Urine WBC 106 /HPF 04/17/17 0600 Urine Leukocyte Esterase Large H 04/17/17 0600 Urine Squamous Epithelial Cells Many /LPF H 04/17/17 0600 Urine Blood Small 04/17/17 0600 Random Glucose 176 mg/dl H 04/17/17 0528 Random Glucose 150 mg/dl H 04/18/17 0513 Random Glucose 113 mg/dl H 04/20/17 0505 Imaging 04/17/17 Echo - EF 71%, trace PI/TR/MR (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 See official report when available for details. 04/16/16 Chest CTA - 1. No evidence of pulmonary embolus. 2. No acute cardiothoracic abnormality 3. Bilateral subcentimeter nodule, largest 4 mm. These are too small characterize and could be postinflammatory. Suggest follow-up films for Fleischner guidelines described below. 04/16/16 CXR - No radiographic evidence of acute cardiopulmonary disease. EKG Vent. Rate : 078 BPM Atrial Rate : 078 BPM P-R Int : 190 ms QRS Dur : 138 ms QT Int : 418 ms P-R-T Axes : 068 -88 074 degrees QTc Int : 476 ms Ventricular pacemaker Abnormal ECG Confirmed by ONEYDA BETH ([id number]) on 04/17/2017 6:17:29 AM Vent. Rate : 075 BPM Atrial Rate : 075 BPM P-R Int : 186 ms QRS Dur : 136 ms QT Int : 428 ms P-R-T Axes : 070 -86 068 degrees QTc Int : 477 ms Ventricular pacemaker Abnormal ECG When compared with ECG of 16-APR-2017 16:01, No significant change was found Confirmed by ONEYDA BETH ([id number]) on 04/17/2017 6:18:02 AM Condition: Improved Discharge: Home Discharge Instructions Home Meds Active Scripts Prednisone 10 Mg Tab (PREDNISONE 10 MG TAB) 10 Mg Tablet, 10-40 MG PO QDAY, #21 TAB 4 pills a day for 3 days, then 2 a day for 3 days, then 1 a day for 3 days Prov:ARY CANNON MD 04/20/17 Levofloxacin 750 Mg Tab (LEVOFLOXACIN 750 MG TAB) 750 Mg Tablet, 750 MG PO QDAY@ 1430, #2 Prov:ARY CANNON MD 04/20/17 Reported Medications Warfarin Sodium (WARFARIN SODIUM) 5 Mg Tablet, 5 MG PO QDAY, TAB 1 tab on MON, FRI, FRI 1/2 Tab on , , SAT, SUN 04/16/17 Clopidogrel Bisulfate (CLOPIDOGREL) 75 Mg Tablet, 1 TAB PO QDAY, TAB 04/16/17 Tiotropium Sylvester (SPIRIVA) 18 Mcg/Cap Inh, 18 MCG INH QDAY, INH 04/16/17 Simvastatin (SIMVASTATIN) 20 Mg Tablet, 20 MG PO HS, TAB 04/16/17 Omeprazole (OMEPRAZOLE) 20 Mg Tablet.dr, 20 MG PO QDAY, TAB 04/16/17 Lisinopril (LISINOPRIL) 10 Mg Tablet, 10 MG PO QDAY, TAB 04/16/17 Multivitamins W-Minerals/Lut (Centrum Silver Tablet) 1 Tab Tablet, 1 TAB PO DAILY, 0 Refills 02/02/09 Amlodipine Besylate (Norvasc) 10 Mg Tablet, 10 MG PO DAILY, 0 Refills 02/02/09 Discontinued Reported Medications Hydrocodone Bit/Acetaminophen (HYDROCODON-ACETAMINOPHEN 5-325) 1 Each Tablet, 1 EACH PO Q4-6H 10/10/12 Calcium Carbonate/Vitamin D3 (Calcium + D Tablet) 1 Udtab Tablet, 1 UDTAB PO DAILY, 0 Refills 02/02/09 Aspirin (Aspirin) 81 Mg Tablet.dr, 81 MG PO DAILY, 0 Refills 02/02/09 Triamterene/Hydrochlorothiazid (Triamterene/Hctz 37.5/25 Tb) 1 Each Tablet, 1 EACH PO DAILY, 0 Refills 02/02/09 Carisoprodol (Soma) 350 Mg Tab, 350 MG PO BID, 0 Refills 02/02/09 Diet: Regular Special Instructions: Follow up with your PCP in 1-2 weeks. Get a UA at that visit to look for resolution of WBC in the urine. Also, you will need to schedule a follow up CT of the chest in about 12 months to follow up on the small nodules. Stop Smoking INR on 04/21 Hold warfarin until told to restart by PCP Go to the ER for worsening SOB, fevers. Copies to: TABITHA SHINE MD; NEVAEH MITTAL Venous Thromboembolism Antithrombotics Is Pt On Any Antithrombotics?: Yes Problem Qualifiers (1) HTN (hypertension): Hypertension type: essential hypertension Qualified Codes: I10 - Essential ( primary) hypertension ARY CANNON MD Apr 20, 2017 13:30
[2017-04-21] MEDS ORDERED: LEVOFLOXACIN 750 MG TAB PO SCH (14:30)
== END 2017-04-20 15:15 | disposition home or self-care (01) | DRG 191 ==
LOC: ER 15:59 → MED 17:58
PROVIDERS: ADMIT Internal Medicine; ATTEND Internal Medicine
DX: J44.1 Chronic obstructive pulmonary disease with (acute) exacerbation (principal); N39.0 Urinary tract infection, site not specified; I12.9 Hypertensive chronic kidney disease with stage 1 through stage 4 chronic kidney disease, or unspecified chronic kidney disease; N18.3 Chronic kidney disease, stage 3 (moderate); T37.8X5A Adverse effect of other specified systemic anti-infectives and antiparasitics, initial encounter; R09.02 Hypoxemia; R91.8 Other nonspecific abnormal finding of lung field; G89.29 Other chronic pain; F17.210 Nicotine dependence, cigarettes, uncomplicated; B97.4 Respiratory syncytial virus as the cause of diseases classified elsewhere; R79.1 Abnormal coagulation profile; Y92.230 Patient room in hospital as the place of occurrence of the external cause; Z95.3 Presence of xenogenic heart valve; Z95.0 Presence of cardiac pacemaker; Z98.1 Arthrodesis status; Z88.8 Allergy status to other drugs, medicaments and biological substances; Z79.01 Long term (current) use of anticoagulants; Z99.81 Dependence on supplemental oxygen
CPT/HCPCS: 36415; 36600; 71046; 71275; 81001; 82040; 82247; 82310; 82374; 82435; 82565; 82803; 82947; 83880; 84075; 84132; 84155; 84295; 84450; 84460; 84484; 84520; 85025; 85379; 85610; 85730; 87502; 93005; 93306; 94640; 94667; 94668; 99285; J0696; J2930; J3535; J7040; J7512; J7614; Q9967

== ENCOUNTER → 2017-04-21 | Outpatient (CLI) | payer MEDICARE ==
[2017-04-17 09:05] VITALS: BMI 33.6
[~2017-04-21] MED LIST changes: +CLOP75TA PO; +LEVO750T27 PO; +OMEP-137 PO; +PRED-1 PO; +SIMV-49 PO; +TIO18R INH; +WARF5TAB23 PO
[2017-04-21 09:11] LABS: INR 3.16
== END ==
LOC: LAB 08:38
PROVIDERS: ATTEND Internal Medicine Cardiovascular Disease
DX: Z51.81 Encounter for therapeutic drug level monitoring (principal); Z79.01 Long term (current) use of anticoagulants; I48.0 Paroxysmal atrial fibrillation; Z95.2 Presence of prosthetic heart valve
CPT/HCPCS: 36415; 85610

== ENCOUNTER → 2017-04-28 | Outpatient (CLI) | payer MEDICARE ==
[2017-04-17 09:05] VITALS: BMI 33.6
[2017-04-28 14:35] LABS: INR 0.97
== END ==
LOC: LAB 13:50
PROVIDERS: ATTEND Internal Medicine Cardiovascular Disease
DX: Z51.81 Encounter for therapeutic drug level monitoring (principal); Z79.01 Long term (current) use of anticoagulants; Z95.2 Presence of prosthetic heart valve; I48.0 Paroxysmal atrial fibrillation
CPT/HCPCS: 36415; 85610

== ENCOUNTER → 2017-05-05 | Outpatient (CLI) | payer MEDICARE ==
[2017-04-17 09:05] VITALS: BMI 33.6
[~2017-05-05] MED LIST changes: +CEPH-13 PO
[2017-05-05 19:14] LABS: INR 2.32
== END ==
LOC: LAB 14:30
PROVIDERS: ATTEND Internal Medicine Cardiovascular Disease
DX: Z51.81 Encounter for therapeutic drug level monitoring (principal); Z79.01 Long term (current) use of anticoagulants; I48.0 Paroxysmal atrial fibrillation; Z95.2 Presence of prosthetic heart valve
CPT/HCPCS: 36415; 85610

== ENCOUNTER → 2017-05-05 | Outpatient (CLI) | payer MEDICARE ==
[2017-04-17 09:05] VITALS: BMI 33.6
== END ==
LOC: ZZSENDIN 15:03
PROVIDERS: ATTEND Nurse Practitioner Family
DX: N39.0 Urinary tract infection, site not specified (principal)
CPT/HCPCS: 81001; 87088

== ENCOUNTER → 2017-05-12 | Outpatient (CLI) | payer MEDICARE ==
[2017-04-17 09:05] VITALS: BMI 33.6
[2017-05-12 14:57] LABS: INR 2.38
== END ==
LOC: LAB 13:22
PROVIDERS: ATTEND Internal Medicine Cardiovascular Disease
DX: Z51.81 Encounter for therapeutic drug level monitoring (principal); Z79.01 Long term (current) use of anticoagulants; I48.0 Paroxysmal atrial fibrillation; Z95.2 Presence of prosthetic heart valve
CPT/HCPCS: 36415; 85610

== ENCOUNTER → 2017-05-15 | Outpatient (CLI) | payer MEDICARE ==
[2017-04-17 09:05] VITALS: BMI 33.6
== END ==
LOC: LAB 13:50
PROVIDERS: ATTEND Nurse Practitioner Family
DX: N39.0 Urinary tract infection, site not specified (principal)
CPT/HCPCS: 81001

== ENCOUNTER → 2017-06-02 | Outpatient (CLI) | payer MEDICARE ==
[2017-04-17 09:05] VITALS: BMI 33.6
[2017-06-02 12:15] LABS: INR 3.15
== END ==
LOC: LAB 11:39
PROVIDERS: ATTEND Internal Medicine Cardiovascular Disease
DX: Z51.81 Encounter for therapeutic drug level monitoring (principal); Z79.01 Long term (current) use of anticoagulants; Z95.2 Presence of prosthetic heart valve; I48.0 Paroxysmal atrial fibrillation
CPT/HCPCS: 36415; 85610

== ENCOUNTER → 2017-06-30 | Outpatient (CLI) | payer MEDICARE ==
[2017-04-17 09:05] VITALS: BMI 33.6
[2017-06-30 11:13] LABS: INR 3.95
== END ==
LOC: LAB 10:39
PROVIDERS: ATTEND Internal Medicine Cardiovascular Disease
DX: Z51.81 Encounter for therapeutic drug level monitoring (principal); Z79.01 Long term (current) use of anticoagulants; I48.0 Paroxysmal atrial fibrillation; Z95.2 Presence of prosthetic heart valve
CPT/HCPCS: 36415; 85610

== ENCOUNTER → 2017-07-07 | Outpatient (CLI) | payer MEDICARE ==
[2017-04-17 09:05] VITALS: BMI 33.6
[2017-07-07 13:25] LABS: INR 2.84
== END ==
LOC: LAB 12:39
PROVIDERS: ATTEND Internal Medicine Cardiovascular Disease
DX: Z51.81 Encounter for therapeutic drug level monitoring (principal); Z79.01 Long term (current) use of anticoagulants; Z95.2 Presence of prosthetic heart valve; I48.0 Paroxysmal atrial fibrillation
CPT/HCPCS: 36415; 85610

== ENCOUNTER → 2017-07-21 | Outpatient (CLI) | payer MEDICARE ==
[2017-04-17 09:05] VITALS: BMI 33.6
[2017-07-21 14:24] LABS: INR 3.14
== END ==
LOC: LAB 13:49
PROVIDERS: ATTEND Internal Medicine
DX: Z51.81 Encounter for therapeutic drug level monitoring (principal); Z79.01 Long term (current) use of anticoagulants; I48.0 Paroxysmal atrial fibrillation
CPT/HCPCS: 36415; 85610

== ENCOUNTER → 2017-08-06 | Outpatient (CLI) | payer MEDICARE ==
[2017-04-17 09:05] VITALS: BMI 33.6
[2017-08-06 13:40] LABS: INR 3.63
== END ==
LOC: LAB 12:59
PROVIDERS: ATTEND Internal Medicine
DX: Z51.81 Encounter for therapeutic drug level monitoring (principal); Z79.01 Long term (current) use of anticoagulants; I48.0 Paroxysmal atrial fibrillation
CPT/HCPCS: 36415; 85610

== ENCOUNTER → 2017-08-18 | Outpatient (CLI) | payer MEDICARE ==
[2017-04-17 09:05] VITALS: BMI 33.6
[2017-08-18 14:00] LABS: INR 2.8
== END ==
LOC: LAB 13:28
PROVIDERS: ATTEND Internal Medicine
DX: Z51.81 Encounter for therapeutic drug level monitoring (principal); Z79.01 Long term (current) use of anticoagulants; I48.0 Paroxysmal atrial fibrillation
CPT/HCPCS: 36415; 85610

== ENCOUNTER → 2017-09-08 | Outpatient (CLI) | payer MEDICARE ==
[2017-04-17 09:05] VITALS: BMI 33.6
[2017-09-08 14:09] LABS: INR 2.9
== END ==
LOC: LAB 13:26
PROVIDERS: ATTEND Internal Medicine
DX: Z51.81 Encounter for therapeutic drug level monitoring (principal); Z79.01 Long term (current) use of anticoagulants; I48.0 Paroxysmal atrial fibrillation
CPT/HCPCS: 36415; 85610

== ENCOUNTER → 2017-09-22 | Outpatient (CLI) | payer MEDICARE ==
[2017-04-17 09:05] VITALS: BMI 33.6
[2017-09-22 13:52] LABS: INR 2.13
== END ==
LOC: LAB 13:27
PROVIDERS: ATTEND Internal Medicine
DX: Z51.81 Encounter for therapeutic drug level monitoring (principal); Z79.01 Long term (current) use of anticoagulants; I48.0 Paroxysmal atrial fibrillation
CPT/HCPCS: 36415; 85610

== ENCOUNTER → 2017-10-13 | Outpatient (CLI) | payer MEDICARE ==
[2017-04-17 09:05] VITALS: BMI 33.6
[2017-10-13 15:25] LABS: INR 1.93
== END ==
LOC: LAB 13:44
PROVIDERS: ATTEND Internal Medicine
DX: Z51.81 Encounter for therapeutic drug level monitoring (principal); Z79.01 Long term (current) use of anticoagulants; I48.0 Paroxysmal atrial fibrillation
CPT/HCPCS: 36415; 85610

== ENCOUNTER → 2017-11-05 | Outpatient (CLI) | payer MEDICARE ==
[2017-04-17 09:05] VITALS: BMI 33.6
[~2017-11-05] MED LIST changes: +AMLO-96 PO
[2017-11-05 14:51] LABS: INR 2.18
== END ==
LOC: LAB 14:21
PROVIDERS: ATTEND Internal Medicine
DX: I48.0 Paroxysmal atrial fibrillation (principal); Z51.81 Encounter for therapeutic drug level monitoring; Z79.01 Long term (current) use of anticoagulants
CPT/HCPCS: 36415; 85610

== ENCOUNTER → 2017-11-05 | Outpatient (CLI) | payer MEDICARE ==
[2017-04-17 09:05] VITALS: BMI 33.6
[2017-11-05 14:45] LABS: PLATELET COUNT, AUTOMATED 231 K/uL (150-450)
== END ==
LOC: LAB 14:37
PROVIDERS: ATTEND Nurse Practitioner Family
DX: N18.3 Chronic kidney disease, stage 3 (moderate) (principal); I10 Essential (primary) hypertension; R53.83 Other fatigue
CPT/HCPCS: 82040; 82247; 82310; 82374; 82435; 82465; 82565; 82947; 83718; 84075; 84132; 84155; 84295; 84443; 84450; 84460; 84478; 84520; 85025

== ENCOUNTER → 2017-11-17 | Outpatient (CLI) | payer MEDICARE ==
[2017-04-17 09:05] VITALS: BMI 33.6
[~2017-11-17] MED LIST changes: +AMLO-111 PO; -AMLO-96 PO; +IOPAMIDOL 76% 75 ML INFUS BTL 75 ML ONE
--- NOTE | 2017-11-17 13:42 | RADIOLOGY IMAGING REPORT ---
FACILITY: [facility] - [place] PATIENT NAME: Livier Jarrett : 1940 MR: [id number] V: [id number] EXAM DATE: ORDERING PHYSICIAN: DAGOBERTO KRAUSE TECHNOLOGIST: Location: [facility] [place] Patient: Livier Jarrett : 1940 Visit/Account:[id number] Date of Sevice: 11/17/2017 CHEST W W/O CONTRAST EXAMINATION: CT chest without contrast One of the following dose optimization techniques was utilized in the performance of this exam: Autom ated exposure control; adjustment of the mA and/or kV according to the patient's size; or use of an i terative reconstruction technique. Specific details can be referenced in the facility's radiology C T exam operational policy. Additional Pertinent history: Follow-up of lung nodules TECHNIQUE: Spiral scan was obtained through the chest without contrast from lung apex to upper abdomen COMPARISON STUDIES: 04/16/2017. FINDINGS: Lungs / pleura: Centrilobular emphysematous changes noted no change in the appearance of the 6 mm nod ule in the inferior anterior aspect of the left upper lung (image 45 series 4). The small pleural-ba sed 4 mm nodular density in the left lower lung is stable. The right upper lobe nodular density maira uring 3 mm (image 22) is stable. Mediastinum / michelle: negative Heart / pericardium: Aortic stent Vessels: negative Musculoskeletal / Body wall: negative Lymph node assessment: negative Lower neck: negative Upper abdomen: negative IMPRESSION: 1. Stable appearing lung nodules. Based on the largest nodule being 6 mm, recommend follow-up CT sc an in 18-24 months. Report Dictated By: Iam Mejía MD at 11/17/2017 1:30 PM Report E-Signed By: Iam Mejía MD at 11/17/2017 1:38 PM WSN:[email or web address]
== END ==
LOC: CT 01:04
PROVIDERS: ATTEND Nurse Practitioner Family
DX: R91.8 Other nonspecific abnormal finding of lung field (principal)
CPT/HCPCS: 71270; Q9967

== ENCOUNTER → 2017-11-19 | Outpatient (CLI) | payer MEDICARE ==
[2017-04-17 09:05] VITALS: BMI 33.6
[~2017-11-19] MED LIST changes: -IOPAMIDOL 76% 75 ML INFUS BTL 75 ML ONE
--- NOTE | 2017-11-19 15:47 | RADIOLOGY IMAGING REPORT ---
FACILITY: [facility] - [place] PATIENT NAME: Livier Jarrett : 1940 MR: [id number] V: [id number] EXAM DATE: ORDERING PHYSICIAN: NAVA VILLANUEVA TECHNOLOGIST: Location: Patient: Livier Jarrett : 1940 Visit/Account:[id number] Date of Sevice: 11/19/2017 Exam type: VENOUS DOPP LOW LEFT EXTREMITY History: Lower extremity swelling Comparison: None. Findings: Left lower extremity veins were imaged including the left common femoral vein greater saphenous vein superficial femoral vein popliteal vein posterior tibial vein anterior tibial vein peroneal veins rev ealing no evidence of intraluminal thrombi the veins were compressible and demonstrated augmentation IMPRESSION: 1. No sonographic evidence DVT involving the left lower extremity veins Report Dictated By: Olga Song MD at 11/19/2017 3:42 PM Report E-Signed By: Olga Song MD at 11/19/2017 3:43 PM WSN:[email or web address]
== END ==
LOC: US 14:37
PROVIDERS: ATTEND Internal Medicine
DX: R22.42 Localized swelling, mass and lump, left lower limb (principal)

== ENCOUNTER → 2017-12-01 | Outpatient (CLI) | payer MEDICARE ==
[2017-04-17 09:05] VITALS: BMI 33.6
[2017-12-01 09:35] LABS: INR 2.36
== END ==
LOC: LAB 09:02
PROVIDERS: ATTEND Internal Medicine
DX: I48.0 Paroxysmal atrial fibrillation (principal); Z51.81 Encounter for therapeutic drug level monitoring; Z79.01 Long term (current) use of anticoagulants
CPT/HCPCS: 36415; 85610

== ENCOUNTER → 2017-12-29 | Outpatient (CLI) | payer MEDICARE ==
[2017-04-17 09:05] VITALS: BMI 33.6
[2017-12-29 11:15] LABS: INR 2.71
== END ==
LOC: LAB 10:30
PROVIDERS: ATTEND Internal Medicine
DX: Z51.81 Encounter for therapeutic drug level monitoring (principal); I48.0 Paroxysmal atrial fibrillation; Z79.01 Long term (current) use of anticoagulants
CPT/HCPCS: 36415; 85610

== ENCOUNTER → 2018-01-26 | Outpatient (CLI) | payer MEDICARE ==
[2017-04-17 09:05] VITALS: BMI 33.6
[2018-01-26 14:04] LABS: INR 2.33
== END ==
LOC: LAB 13:35
PROVIDERS: ATTEND Internal Medicine
DX: Z51.81 Encounter for therapeutic drug level monitoring (principal); I48.0 Paroxysmal atrial fibrillation; Z79.01 Long term (current) use of anticoagulants
CPT/HCPCS: 36415; 85610

== ENCOUNTER → 2018-03-09 | Outpatient (CLI) | payer MEDICARE ==
[2017-04-17 09:05] VITALS: BMI 33.6
[2018-03-09 11:49] LABS: INR 2.72
== END ==
LOC: LAB 11:27
PROVIDERS: ATTEND Internal Medicine
DX: Z51.81 Encounter for therapeutic drug level monitoring (principal); Z79.01 Long term (current) use of anticoagulants; I48.0 Paroxysmal atrial fibrillation
CPT/HCPCS: 36415; 85610

== ENCOUNTER → 2018-03-23 | Outpatient (CLI) | payer MEDICARE ==
[2017-04-17 09:05] VITALS: BMI 33.6
[~2018-03-23] MED LIST changes: -AMLO-111 PO; +AMLO-125 PO
[2018-03-23 11:00] LABS: INR 3.57
== END ==
LOC: LAB 10:28
PROVIDERS: ATTEND Internal Medicine
DX: Z51.81 Encounter for therapeutic drug level monitoring (principal); Z79.01 Long term (current) use of anticoagulants; I48.0 Paroxysmal atrial fibrillation
CPT/HCPCS: 36415; 85610

== ENCOUNTER 2018-03-27 01:15 | Day surgery (SDC) | payer MEDICARE ==
[2017-04-17 09:05] VITALS: Ht 157.5 cm; Wt 79.4 kg
[~2018-03-27] VITALS: Ht 157.5 cm; Wt 79.4 kg
[~2018-03-27 01:15] MED LIST changes: +NS(*) 0.9% 500 ML BAG 500 ML IV PRN
[2018-03-27 12:28] VITALS: BP 131/71
[2018-03-27] MEDS ORDERED: NORMOSOL R SOLN(*) 1000 ML BAG 1,000 ML IV PRN (13:20)
[2018-03-27] MEDS ORDERED: LIDOCAINE/SOD BICARB 8.4% SYR ID ONE (13:20)
[2018-03-27] MEDS ORDERED: OPHTHALMIC PROCEDURE 1 OD PRN (13:30)
[2018-03-27] MEDS ORDERED: OPHTHALMIC PROCEDURE 2 OD PRN ×2 (13:30)
[2018-03-27] MEDS ORDERED: acetaZOLAMIDE 500 MG CAPCR PO ONE (14:00)
[2018-03-27 14:09] VITALS: BP 144/78
--- NOTE | 2018-03-27 16:40 | FOSTER RIGHT EYE CATARACT ---
EVENT DATE: March 27, 2018 SURGEON: Tristian Colby MD ANESTHESIOLOGIST: Daryl Delvalle MD ANESTHESIA: MAC PREOPERATIVE DIAGNOSIS Cataract, right eye. POSTOPERATIVE DIAGNOSIS Cataract, right eye. PROCEDURE Phacoemulsification of cataractous lens with implantation of an intraocular lens, right eye. DESCRIPTION OF PROCEDURE The risks, benefits, and alternatives were carefully discussed with the patient, and preoperative consent was obtained. The patient was brought to the operating room after receiving topical anesthetic. The patient was prepped and draped using sterile technique in the usual manner. A stab incision was made, and the chamber was inflated with preservative-free lidocaine. DuoVisc was injected to inflate the chamber. A 2.2 mm blade was used to enter the anterior chamber. Utrata forceps were used to tear a circular capsulorrhexis. BSS was used to hydrodissect the nucleus. Phaco tip was introduced, and the nucleus was chopped into four quadrants. Each quadrant was removed. The I/A tip was used to remove the cortex. The bag was inflated with ProVisc. The intraocular lens was injected into the capsular bag. The I/A tip was used to remove the ProVisc. The wound was found to be watertight. Vigamox, Nevanac, and Maxitrol ointment were placed in the patient's eye. The patient's eye was patched, and the patient was taken to the recovery room in stable condition. The patient was examined in the recovery room and found to be stable prior to release from the hospital. SAMATNHA
== END 2018-03-27 14:30 | disposition home or self-care (01) ==
LOC: OR 01:15
PROVIDERS: ATTEND Ophthalmology
DX: H25.11 Age-related nuclear cataract, right eye (principal)
CPT/HCPCS: 66982; A9270; J7040; V2632

== ENCOUNTER → 2018-04-06 | Outpatient (CLI) | payer MEDICARE ==
[2017-04-17 09:05] VITALS: BMI 33.6
[~2018-04-06] MED LIST changes: -NS(*) 0.9% 500 ML BAG 500 ML IV PRN
[2018-04-06 12:36] LABS: INR 2.16
== END ==
LOC: LAB 10:58
PROVIDERS: ATTEND Internal Medicine
DX: Z51.81 Encounter for therapeutic drug level monitoring (principal); Z79.01 Long term (current) use of anticoagulants; I48.0 Paroxysmal atrial fibrillation
CPT/HCPCS: 36415; 85610

== ENCOUNTER → 2018-04-27 | Outpatient (CLI) | payer MEDICARE ==
[2017-04-17 09:05] VITALS: BMI 33.6
[2018-04-27 10:12] LABS: INR 3.22
== END ==
LOC: LAB 09:27
PROVIDERS: ATTEND Internal Medicine
DX: Z51.81 Encounter for therapeutic drug level monitoring (principal); Z79.01 Long term (current) use of anticoagulants; I48.0 Paroxysmal atrial fibrillation
CPT/HCPCS: 36415; 85610

== ENCOUNTER 2018-05-01 03:35 | Day surgery (SDC) | payer MEDICARE ==
[2017-04-17 09:05] VITALS: Ht 154.9 cm; Wt 88.5 kg
[~2018-05-01] VITALS: Ht 154.9 cm; Wt 88.5 kg
[2018-05-01] MEDS ORDERED: OPHTHALMIC PROCEDURE 1 OS PRN (15:00)
[2018-05-01] MEDS ORDERED: OPHTHALMIC PROCEDURE 2 OS PRN ×2 (15:00)
[2018-05-01] MEDS ORDERED: NORMOSOL R SOLN(*) 1000 ML BAG 1,000 ML IV PRN (15:00)
[2018-05-01] MEDS ORDERED: LIDOCAINE/SOD BICARB 8.4% SYR ID ONE (15:00)
[2018-05-01] MEDS ORDERED: acetaZOLAMIDE 500 MG CAPCR PO ONE (15:00)
[2018-05-01 15:17] VITALS: BP 143/71
[2018-05-01 16:00] VITALS: BP 136/69
--- NOTE | 2018-05-01 17:46 | FOSTER LEFT EYE CATARACT ---
EVENT DATE: May 01, 2018 SURGEON: Tristian Colby MD ANESTHESIOLOGIST: ANESTHESIA: [employer]: PREOPERATIVE DIAGNOSIS Cataract, left eye. POSTOPERATIVE DIAGNOSIS Cataract, left eye. PROCEDURE Phacoemulsification of cataractous lens with implantation of an intraocular lens, left eye. DESCRIPTION OF PROCEDURE The risks, benefits, and alternatives were carefully discussed with the patient, and preoperative consent was obtained. The patient was brought to the operating room after receiving topical anesthetic. The patient was prepped and draped using sterile technique in the usual manner. A stab incision was made, and the chamber was inflated with preservative-free lidocaine. DuoVisc was injected to inflate the chamber. A 2.2 mm blade was used to enter the anterior chamber. Utrata forceps were used to tear a circular capsulorrhexis. BSS was used to hydrodissect the nucleus. Phaco tip was introduced, and the nucleus was chopped into four quadrants. Each quadrant was removed. The I/A tip was used to remove the cortex. The bag was inflated with ProVisc. The intraocular lens was injected into the capsular bag. The I/A tip was used to remove the ProVisc. The wound was found to be watertight. Vigamox, Nevanac, and Maxitrol ointment were placed in the patient's eye. The patient's eye was patched, and the patient was taken to the recovery room in stable condition. The patient was examined in the recovery room and found to be stable prior to release from the hospital. SAMANTHA
[2018-05-18] MEDS ORDERED: AMLO-125 PO (16:24)
== END 2018-05-01 16:24 | disposition home or self-care (01) ==
LOC: OR 03:35
PROVIDERS: ATTEND Ophthalmology
DX: H25.12 Age-related nuclear cataract, left eye (principal)
CPT/HCPCS: 66984; A9270; V2632

== ENCOUNTER → 2018-05-11 | Outpatient (CLI) | payer MEDICARE ==
[2017-04-17 09:05] VITALS: BMI 33.6
[2018-05-11 10:45] LABS: INR 3.12
== END ==
LOC: LAB 10:13
PROVIDERS: ATTEND Internal Medicine
DX: Z51.81 Encounter for therapeutic drug level monitoring (principal); Z79.01 Long term (current) use of anticoagulants; I48.0 Paroxysmal atrial fibrillation
CPT/HCPCS: 36415; 85610

== ENCOUNTER → 2018-05-25 | Outpatient (CLI) | payer MEDICARE ==
[2017-04-17 09:05] VITALS: BMI 33.6
[2018-05-25 11:52] LABS: INR 3.28
== END ==
LOC: LAB 11:26
PROVIDERS: ATTEND Internal Medicine
DX: Z51.81 Encounter for therapeutic drug level monitoring (principal); Z79.01 Long term (current) use of anticoagulants; I48.0 Paroxysmal atrial fibrillation
CPT/HCPCS: 36415; 85610

== ENCOUNTER → 2018-06-24 | Outpatient (CLI) | payer MEDICARE ==
[2017-04-17 09:05] VITALS: BMI 33.6
[2018-06-24 10:04] LABS: INR 2.58
== END ==
LOC: LAB 09:37
PROVIDERS: ATTEND Internal Medicine
DX: Z51.81 Encounter for therapeutic drug level monitoring (principal); Z79.01 Long term (current) use of anticoagulants; I48.0 Paroxysmal atrial fibrillation
CPT/HCPCS: 36415; 85610

== ENCOUNTER → 2018-07-28 | Outpatient (CLI) | payer MEDICARE ==
[2017-04-17 09:05] VITALS: BMI 33.6
[2018-07-28 11:12] LABS: INR 2.18
== END ==
LOC: LAB 10:05
PROVIDERS: ATTEND Internal Medicine
DX: Z79.01 Long term (current) use of anticoagulants (principal); I48.0 Paroxysmal atrial fibrillation
CPT/HCPCS: 36415; 85610

== ENCOUNTER → 2018-08-24 | Outpatient (CLI) | payer MEDICARE ==
[2017-04-17 09:05] VITALS: BMI 33.6
[2018-08-24 10:46] LABS: INR 1.92
== END ==
LOC: LAB 10:22
PROVIDERS: ATTEND Internal Medicine
DX: Z51.81 Encounter for therapeutic drug level monitoring (principal); Z79.01 Long term (current) use of anticoagulants; I48.0 Paroxysmal atrial fibrillation
CPT/HCPCS: 36415; 85610

== ENCOUNTER → 2018-09-21 | Outpatient (CLI) | payer MEDICARE ==
[2017-04-17 09:05] VITALS: BMI 33.6
[2018-09-21 11:24] LABS: INR 2.19
== END ==
LOC: LAB 10:49
PROVIDERS: ATTEND Internal Medicine
DX: Z79.01 Long term (current) use of anticoagulants (principal); I48.0 Paroxysmal atrial fibrillation
CPT/HCPCS: 36415; 85610

== ENCOUNTER → 2018-10-19 | Outpatient (CLI) | payer MEDICARE ==
[2017-04-17 09:05] VITALS: BMI 33.6
[2018-10-19 11:16] LABS: INR 1.88
== END ==
LOC: LAB 10:43
PROVIDERS: ATTEND Internal Medicine
DX: Z51.81 Encounter for therapeutic drug level monitoring (principal); I48.0 Paroxysmal atrial fibrillation; Z79.01 Long term (current) use of anticoagulants
CPT/HCPCS: 36415; 85610